=== PATIENT | female | born 1955 | race Caucasian/White ===

== ENCOUNTER 2020-05-03 12:55 | Outpatient (CLI) | payer MEDICARE, OTHER, SELFPAY ==
--- NOTE | ~2020-05-03 | MM_ITS ---
EXAMINATION: MM diagnostic olivier BI w danilo HISTORY: Bilateral diagnostic mammogram, history of right breast cancer TECHNIQUE: Craniocaudal, mediolateral, and mediolateral oblique 3-D tomosynthesis images of the ruperto ts were performed and synthetic 2-D images were generated. CAD analysis was submitted and interpreted . COMPARISON: 03/22/2019, 10/20/2017,10/07/2016, 10/14/2015 BREAST PARENCHYMAL COMPOSITION: There are scattered areas of fibroglandular density. FINDINGS: There are stable lumpectomy changes in the posterior third of the upper outer quadrant of t he right breast. There is no evidence of suspicious mass, calcification, or architectural distortion in either breast to suggest malignancy. There has been no suspicious interval change. IMPRESSION: 1. Stable lumpectomy changes in the right breast without mammographic evidence of malignancy in eithe r breast. 2. Recommend routine screening mammography in one year. BI-RADS Category 2: Benign finding(s). Reviewed, dictated and finalized at location A. IMPRESSION: 1. Stable lumpectomy changes in the right breast without mammographic evidence of malignancy in either breast. 2. Recommend routine screening mammography in one year. BI-RADS Category 2: Benign finding(s).
== END 2020-05-03 12:56 | disposition home or self-care (01) ==
LOC: ANHIMG 13:01
PROVIDERS: PCP Family Medicine; Visit Provider Family Medicine
DX: Z85.3 Personal history of malignant neoplasm of breast (principal); E11.9 Type 2 diabetes mellitus without complications; I10 Essential (primary) hypertension; M25.40 Effusion, unspecified joint; Z79.899 Other long term (current) drug therapy
CPT/HCPCS: 77062; 77066; G0279

== ENCOUNTER 2021-04-18 15:03 | Outpatient (CLI) | payer MEDICARE, OTHER, SELFPAY ==
--- NOTE | ~2021-04-18 | CT_ITS ---
EXAMINATION: CT IAC/mastoids BI wo con EXAM DATE: 04/18/2021 15:54 INDICATION: H60.91 - Unspecified otitis externa, right ear . Symptoms of right ear pain, facial pain and pressure, chronic sinusitis and nasal congestion. TECHNIQUE: Spiral CT of the internal auditory canals was performed without contrast. Axial and miguel nal images were reviewed. The dose-length product (DLP) for this examination was 244.85 mGy-cm. The exposure was tailored according to patient size, and iterative reconstruction (ASIR) was used as add itional dose reduction technique. Correlation is made to sinus CT same date. FINDINGS: RIGHT side: The middle ear is well aerated. The mastoid air cells are well aerated. The seventh leather crafter nial nerve has a normal course. The scutum is intact. The ossicles are normal in appearance. The c ochlea and semicircular canals are normal in appearance. Internal auditory canal is normal in appear ance and symmetric compared to contralateral side. LEFT side: The middle ear is well aerated. The mastoid air cells are well aerated. The seventh cran ial nerve has a normal course. The scutum is intact. The ossicles are normal in appearance. The co chlea and semicircular canals are normal in appearance. Internal auditory canal is normal in appeara nce and symmetric compared to contralateral side. IMPRESSION: Unremarkable ear, temporal bone CT exam. Reviewed, dictated and finalized at location A.
--- NOTE | ~2021-04-18 | CT_ITS ---
EXAMINATION: CT sinus wo con EXAM DATE: 04/18/2021 15:54 INDICATION: J32.9 - Chronic sinusitis, unspecified. Nasal congestion. TECHNIQUE: Spiral CT of the sinuses was acquired in the axial plane. Coronal and sagittal reformatte d images were also reviewed. The dose-length product (DLP) for this examination was 291.45 mGy-cm. Iterative reconstruction (ASIR) was used as dose reduction technique. There is no prior study for co mparison. FINDINGS: The sinuses are normally developed. The sinuses are well aerated. The ostiomeatal unit s are patent. There is no sinus wall thickening. There is bilateral maria eugenia bullosa, larger on the left. There is mild rightward nasal septal deviation. The mastoid air cells and middle ears are we ll aerated. External auditory canals are patent. The orbits and visualized soft tissues are unrem arkable. IMPRESSION: Clear sinuses. Reviewed, dictated and finalized at location A. IMPRESSION: Clear sinuses.
== END 2021-04-18 15:04 | disposition home or self-care (01) ==
PROVIDERS: PCP Family Medicine; Visit Provider Otolaryngology
DX: H60.91 Unspecified otitis externa, right ear (principal); J32.9 Chronic sinusitis, unspecified; R44.8 Other symptoms and signs involving general sensations and perceptions; R09.81 Nasal congestion; R09.82 Postnasal drip; R51.9 Headache, unspecified
CPT/HCPCS: 70480; 70486

== ENCOUNTER 2021-05-15 13:13 | Outpatient (CLI) | payer MEDICARE, OTHER, SELFPAY ==
--- NOTE | ~2021-05-15 | MM_ITS ---
EXAMINATION: MM diagnostic olivier BI w danilo HISTORY: Status post right partial mastectomy for breast cancer TECHNIQUE: ML, MLO and craniocaudal 3-D tomosynthesis images of both breasts were performed and synth etic 2-D images were generated. CAD analysis was submitted and interpreted. COMPARISON: , 03/22/2019, 10/20/2017 bilateral diagnostic digital mammogram examinations BREAST PARENCHYMAL COMPOSITION: There are scattered areas of fibroglandular density. FINDINGS: Stable postoperative changes from right partial mastectomy for breast cancer. No suspicious mass or interval architectural distortion, malignant calcification, skin thickening or retraction or significant new or developing density is detected. IMPRESSION: 1. Status post right partial mastectomy for breast cancer. No evidence of malignancy. 2. Routine screening is recommended BI-RADS Category 2: Benign finding(s). Reviewed, dictated and finalized at location A. IMPRESSION: 1. Status post right partial mastectomy for breast cancer. No evidence of malig shukri. 2. Routine screening is recommended BI-RADS Category 2: Benign finding(s).
== END 2021-05-15 13:14 | disposition home or self-care (01) ==
LOC: ANHIMG 13:14
PROVIDERS: PCP Family Medicine; Visit Provider Physician Assistant
DX: Z86.000 Personal history of in-situ neoplasm of breast (principal)
CPT/HCPCS: 77062; 77066; G0279

== ENCOUNTER 2021-10-22 14:33 | Emergency (ER) | payer MEDICARE, OTHER, SELFPAY ==
--- NOTE | ~2021-10-22 | XR_ITS ---
EXAMINATION: XR chest 2V EXAM DATE: 10/22/2021 15:23 INDICATION: Shortness of breath. TECHNIQUE: Frontal and lateral projections of the chest obtained and reviewed. There is no prior frantz dy for comparison. FINDINGS: Right breast surgical clips and asymmetric breast shadows. No confluent consolidation, pne umothorax or pleural effusion suspected. Cardiomediastinal silhouette is normal. There are bony degen erative changes. IMPRESSION: No acute cardiopulmonary findings. Reviewed, dictated and finalized at location A. D AND PASTRY BAKER
[2021-10-22 14:41] VITALS: BP 182/88; PULSE 106; RESP 18; TEMP 36.4; O2SAT 97
--- NOTE | 2021-10-22 15:02 | ED.URI ---
HPI - URI/Sore Throat General Chief Complaint: Upper Respiratory Infection Stated Complaint: sob Time Seen by Provider: 10/22/21 15:17 Source: patient and RN notes reviewed Mode of arrival: ambulatory Limitations: no limitations History of Present Illness HPI Narrative: 66-year-old female presents with concern for exertional shortness of breath and occasional cough. She reports she has had the symptoms since before , she was using her albuterol inhaler but stopped using it because it was making her jittery. She reports that the inhaler did not improve her shortness of breath symptoms. She also reports chronic sinus problems for which she just saw her ENT and was prescribed an antibiotic and a steroid, she has not started taking those medications yet. She reports she has been having bilateral ankle swelling, reports however that she has this occasionally and she has been using SHELLY hose. She denies any chest pain. Reports occasional cough. MD elicited complaint: cough and sore throat Related Data Allergies Allergy/AdvReac Type Severity Reaction Status Date / Time ciprofloxacin [From Cipro] Allergy Severe hives Verified 10/22/21 14:00 codeine Allergy Unknown Skin Verified 10/22/21 14:00 Reaction hydrocodone Allergy Unknown Skin Verified 10/22/21 14:00 Reaction metformin Allergy Unknown upset Verified 10/22/21 14:00 stomach, gas, diarrhea morphine Allergy Unknown welts, rash Verified 10/22/21 14:00 tetracycline Allergy Unknown Yeast Verified 10/22/21 14:00 infection 1)VICODIN 2)MORPHINE Allergy Intermediate RASH Uncoded 10/22/21 14:00 ITCHING WELTS Review of Systems Review of Systems: CONSTITUTIONAL: Denies malaise, chills, sweats, or fever. EYES: Denies visual changes, redness, or discharge. ENT: Reports rhinorrhea, congestion, sinus pain, otalgia and sore throat. CARDIOVASCULAR: Denies chest pain, palpitations, or edema. RESPIRATORY: Reports cough. Reports exertional dyspnea. GASTROINTESTINAL: Denies abdominal pain, nausea, vomiting, diarrhea SKIN: Denies rash or itching. MUSCULOSKELETAL: Denies myalgia. NEUROLOGIC: Denies headache. All systems reviewed & are unremarkable except as noted in HPI and below PMFSH Past Medical History Medical History (Updated 10/22/21 @ 15:45 by Isaura Steward NP) Broken wrist Carpal tunnel syndrome Cervical post-laminectomy syndrome Surgical History Surgical History H/O adenoidectomy H/O arthroscopy of knee H/O arthroscopy of shoulder H/O lumpectomy H/O spinal fusion (~2014) H/O: hysterectomy History of left hip replacement Hx of cholecystectomy Hx of spinal fusion (~2009) Hx of tonsillectomy Family History Family History Father Hypertension Mother Hypertension Family history of malignant neoplasm of uterus Social History Social History Smoking status: Never smoker Alcohol intake: current Comments At time of signature, agree with nursing past medical, surgical, social and family history. There is no relevant family history pertinent to the presenting complaint Exam Narrative: GENERAL: Well-appearing, well-nourished, and in no acute distress. HEAD: Normocephalic EYES: PERRLA, conjunctivae clear ENT: Nares clear. Mucous membranes moist. Oropharynx not erythematous without lesions. Tonsils not enlarged and without exudate, no drooling, no hoarseness, no trismus, uvula midline. NECK: Supple. No lymphadenopathy CHEST: Clear to auscultation, breath sounds equal. No wheezing, rhonchi, rales, or stridor. No respiratory distress, speaks in full sentences. HEART: Regular rate and rhythm. No murmur heard. Nonpitting bilateral lower extremity edema SKIN: Warm, dry, no rash. NEURO: Alert and oriented x3. PSYCH: Normal mood and affect Course Course
== END 2021-10-22 15:48 | disposition home or self-care (01) ==
PROVIDERS: Emergency Provider Nurse Practitioner; PCP Family Medicine
DX: R06.02 Shortness of breath (principal); Z96.642 Presence of left artificial hip joint; I34.1 Nonrheumatic mitral (valve) prolapse
CPT/HCPCS: 71046; 99213; G0463